=== PATIENT | female | born 1995 | race Caucasian/White ===

== ENCOUNTER 2022-06-30 13:52 | Emergency (ER) | payer OTHER, SELFPAY ==
[2022-06-30 14:00] VITALS: BP 147/92; PULSE 80; RESP 16; TEMP 36.9; O2SAT 100
--- NOTE | 2022-06-30 14:04 | ED.SKABFB ---
HPI - Skin/Abscess/Foreign Bdy General Chief complaint: Skin/Abscess/Foreign Body Stated complaint: Skin Sore Time Seen by Provider: 06/30/22 14:04 Source: patient and RN notes reviewed History of Present Illness HPI narrative: Patient is a 27-year-old female who presents to the Urgent Care with complaints of a sore on the left breast. Patient states that she has had the assumed blackhead on the breast for approximately 1 year. Patient then tried to squeeze and pop the area approximately 3 days ago and now has increased redness and swelling. Patient states that she did have a slight pus and bloody drainage from the area which has since subsided. Patient denies any fever, nausea or vomiting. Patient states that she does have a appointment with her doctor on Monday. No other acute complaints. No acute distress noted. Patient aware of the plan of care. Some parts of this dictation were generated by voice recognition software and may contain typographical and/or grammatical inaccuracies. Related Data Allergies Allergy/AdvReac Type Severity Reaction Status Date / Time amoxicillin Allergy Hives Verified 06/30/22 14:11 Review of Systems Review of Systems: CONSTITUTIONAL: Denies fever, chills, or sweats. EYES: Denies visual changes, redness, or discharge. ENT: Denies rhinorrhea, congestion, sore throat, or otalgia. CARDIOVASCULAR: Denies chest pain, palpitations, or edema. RESPIRATORY: Denies cough or dyspnea. GASTROINTESTINAL: Denies abdominal pain, nausea, vomiting, or diarrhea. GENITOURINARY: Denies dysuria or hematuria. SKIN: Reports of a sore to the left breast MUSCULOSKELETAL: Denies back pain, joint pain, or myalgia. NEUROLOGIC: Denies headache, numbness, or weakness. All other systems reviewed are negative, except as documented in HPI. PMFSH Comments At the time of my signature, I reviewed and agree with the nursing past medical, surgical, social, and family history. There is no relevant family history pertinent to the patient complaint. Exam Narrative: GENERAL: This is a well-nourished, well-developed patient, in no apparent distress. HEAD: normocephalic, atraumatic. EYES: PERRL. Sclera clear/white. Vision is grossly intact. EARS: External ears normal NOSE: External nose normal with no obvious nasal discharge, nares without redness, no rhinorrhea. THROAT: Mucous membranes moist NECK: Neck supple SKIN: Firm 2.5 cm x 3 cm abscess with surrounding 7 cm erythema, tenderness, no drainage NEURO: awake, alert, and oriented to person, place and time. There were no obvious focal neurologic abnormalities. EXTREMITIES: No clubbing, cyanosis, or edema. Course Course Level of Care: Express Care Visit Vital Signs Vital signs: Vital Signs Temperature 98.5 F 06/30/22 14:00 Pulse Rate 80 06/30/22 14:00 Respiratory Rate 16 06/30/22 14:00 Blood Pressure 147/92 H 06/30/22 14:00 Pulse Oximetry 100 06/30/22 14:00 Oxygen Delivery Room Air 06/30/22 14:00 Temperature 98.5 F 06/30/22 14:00 Pulse Rate 80 06/30/22 14:00 Respiratory Rate 16 06/30/22 14:00 Blood Pressure 147/92 H 06/30/22 14:00 Pulse Oximetry 100 06/30/22 14:00 Oxygen Delivery Room Air 06/30/22 14:00 Reviewed- Patient is informed that they may have pre-hypertension or hypertension based on a blood pressure reading in the department. I recommend the patient call the primary care provider listed on their discharge instructions or a physician of their choice this week to arrange follow-up for further evaluation of possible pre-hypertension or hypertension. MDM - Skin/Abscess/Foreign Bdy MDM Narrative Medical decision making narrative: Advised patient to complete the oral antibiotic regimen as prescribed. Be sure to eat and drink with medication. Would recommend warm compress/Tylenol/ibuprofen as needed for pain or discomfort. If she develops any increase in pain associated with swelling, nausea, vomiting or fever-go to
== END 2022-06-30 14:15 | disposition home or self-care (01) ==
PROVIDERS: Emergency Provider Nurse Practitioner Family
DX: N61.1 Abscess of the breast and nipple (principal)
CPT/HCPCS: 99213; G0463